=== PATIENT | male | born 1945 | race Caucasian/White ===

== ENCOUNTER 2017-04-07 07:40 | Day surgery (SDC) | payer MEDICARE, BC ==
[2017-04-06 14:11] VITALS: BMI 29.2
[~2017-04-07] VITALS: Ht 167.6 cm; Wt 83.5 kg
[2017-04-07] VITALS (19 sets, daily range): BP systolic 102–146; BP diastolic 66–94; PULSE 64–74; RESP 12–21; Ht 167.6 cm; Wt 83.5 kg
[~2017-04-07 07:40] MED LIST: CEFAZOLIN 2 GM/50 ML (PMX) 50 ML IVPB SCH; SOD CHLORIDE 0.9% 1,000 ML IV SCH
[2017-04-07] MEDS ORDERED: ASPI-664 PO (09:24)
[2017-04-07] MEDS ORDERED: LOSA50TA6 PO (09:25)
[2017-04-07] MEDS ORDERED: METF500T3 PO (09:26)
[2017-04-07] MEDS ORDERED: ICOS1CAP PO (09:26)
[2017-04-07] MEDS ORDERED: BUPIVACAINE 0.25% (MPF) 30 ML INJ ONE (09:45)
[2017-04-07] MEDS ORDERED: POLYMYXIN/BACITRACIN 1L IRRIG ONE ×2 (09:45→10:32)
[2017-04-07] MEDS ORDERED: ROCURONIUM 50 MG INJ ONE (09:50)
[2017-04-07] MEDS ORDERED: PROPOFOL 20 ML ONE (09:50)
[2017-04-07] MEDS ORDERED: ROPIVACAINE 0.2% 20 ML VIAL ONE (09:51)
[2017-04-07] MEDS ORDERED: CEFAZOLIN 1 GM INJ ONE (09:51)
[2017-04-07] MEDS ORDERED: FENTAnyl 50 MCG/ML VIAL ONE (09:51)
[2017-04-07] MEDS ORDERED: MIDAZOLAM 1 MG/ML 2 ML INJ ONE (09:51)
[2017-04-07] MEDS ORDERED: ONDANSETRON 4 MG INJ ONE (10:36)
[2017-04-07] MEDS ORDERED: METOCLOPRAMIDE 10 MG INJ ONE (10:36)
[2017-04-07] MEDS ORDERED: SUGAMMADEX SODIUM 200 MG/2 ML VIAL IV ONE (10:36)
[2017-04-07] MEDS ORDERED: PHENYLephrine (100 MCG/ML) 5ML SYG ONE (10:36)
[2017-04-07] MEDS ORDERED: DEXAMETHASONE 4 MG/ML 1 ML INJ ONE (10:36)
--- NOTE | 2017-04-07 10:49 | OPR ---
Date/Time of Note Date/Time of Note DATE: 04/07/17 TIME: 10:38 Operative Report Procedure Date: Apr 07, 2017 Preoperative Diagnosis incarcerated ventral hernia Postoperative Diagnosis same Operation Performed 1. lap incarcerated ventral hernia repair cpt code 59051 2. implantation of mesh cpt code 45406 3. therapeutic injection of subcutaneous marcaince cpt code 85174 Surgeon: Pina FELICIANO Water Pollution Control Inspector: MELLISSA BRYSON MD Anesthesia Type: general Estimated Blood Loss: minimal Specimen: none Grafts/Implants ventralight ST mesh 10 x 15 cm Complications: no Indications This is a 72-year-old old hernia he requires surgical repair. Risks alternatives benefits and percent were discussed with the patient. Patient expresses understanding consents to the operation Procedure Description She was taken to the OR and prepped and draped in usual sterile fashion. Surgical timeout is performed. IV antibiotics were given. Quadrant 5 mm transverse incision is made with a 15 blade. Using a 5 mm optical trocar optical perform pneumoperitoneum is established. Left flank 12 mm optical trocar and left lower quadrant 5 mm optical trochars are placed under direct visualization. Upon initial inspection there is incarcerated hernia contents which were reduced endoscopically. The hernia defect is identified and closed with interrupted #1 Prolenes using Endo Close and laparoscopic techniques. Underlay mesh with 10 [address] mesh is secured in place with secure strap. There is approximately 4 to of coverage. There is good hemostasis. Ports removed under visualization. Skin is closed using skin alonso. The subcu times Marcaine is injected throughout all incision sites. Dry dressings were applied to Pina FELICIANO Apr 07, 2017 10:49
[2017-04-07] MEDS ORDERED: HYDROCODONE/APAP (5/325) TAB PO ONE (11:00)
[2017-04-07] MEDS ORDERED: morphine 2 MG INJ ONE (11:23)
[2017-04-07] MEDS ORDERED: MEPERIDINE 25 MG INJ IV PRN (11:30)
[2017-04-07] MEDS ORDERED: LABETALOL HCL 20MG INJ IV PRN (11:30)
[2017-04-07] MEDS ORDERED: DIPHENHYDRAMINE 50 MG INJ IV PRN (11:30)
[2017-04-07] MEDS ORDERED: EPHEDrine SULFATE 50 MG/5 ML SYG IV PRN (11:30)
[2017-04-07] MEDS ORDERED: FENTAnyl 50 MCG/ML VIAL IV PRN ×3 (11:30)
[2017-04-07] MEDS ORDERED: hydrALAzine 20 MG INJ IV PRN (11:30)
[2017-04-07] MEDS ORDERED: ONDANSETRON 4 MG INJ IV PRN (11:30)
[2017-04-07] MEDS ORDERED: morphine (1 MG/ML) 10ML SYRINGE IV PRN ×3 (11:30)
== END 2017-04-07 13:10 | disposition home or self-care (01) ==
LOC: SDS 07:40
PROVIDERS: ATTEND Surgery
DX: K43.6 Other and unspecified ventral hernia with obstruction, without gangrene (principal); E11.9 Type 2 diabetes mellitus without complications; I10 Essential (primary) hypertension
CPT/HCPCS: 49653; 82962; C1781; J0690; J1100; J2250; J2270; J2405; J2765; J2795; J3010; J2370

== ENCOUNTER 2017-07-01 09:40 | Day surgery (SDC) | payer MEDICARE, BC ==
[~2017-07-01] VITALS: Ht 170.2 cm; Wt 85.4 kg
[~2017-07-01 09:40] MED LIST changes: +ASPI-664 PO; -CEFAZOLIN 2 GM/50 ML (PMX) 50 ML IVPB SCH; +ICOS1CAP PO; +LOSA50TA6 PO; +METF500T3 PO; -SOD CHLORIDE 0.9% 1,000 ML IV SCH
[2017-07-01] MEDS ORDERED: ATORVASTATIN (10:33)
[2017-07-01] MEDS ORDERED: BABY ASA (10:33)
[2017-07-01] MEDS ORDERED: LISINOPRIL (10:33)
[2017-07-01] MEDS ORDERED: NAPROXEN (10:33)
[2017-07-01 10:44] VITALS: BP 156/89; PULSE 76; RESP 27
[2017-07-01] MEDS ORDERED: MIDAZOLAM 1 MG/ML 2 ML INJ ONE (11:03)
[2017-07-01] MEDS ORDERED: LIDOCAINE 2% (SDV) 5 ML INJ ONE (11:03)
[2017-07-01] MEDS ORDERED: PROPOFOL 20 ML ONE (11:03)
[2017-07-01 11:31] VITALS: BP 110/68; PULSE 64; RESP 16
--- NOTE | 2017-07-01 11:33 | OPPN ---
Date/Time of Note Date/Time of Note DATE: 07/01/17 TIME: 11:33 Operative Report Preoperative Diagnosis Screening Postoperative Diagnosis Small rectal polyp was removed Internal hemorrhoids Operation/Procedure Performed Colonoscopy and biopsy Surgeon see signature line shop assistant None Anesthesia: MAC Estimated blood loss: none Transfusion Required none Specimen Rectal polyp Grafts/Implants none Complications none RTEMAYNE QUEZADA MD Jul 01, 2017 11:33
[2017-07-01 12:51] VITALS: BP 136/85; PULSE 66; RESP 20
--- NOTE | 2017-07-01 13:03 | GILP ---
DATE OF PROCEDURE: NAME OF PROCEDURES: Colonoscopy and biopsy. SURGEON: Tremayne Jaramillo MD PREOPERATIVE DIAGNOSIS: Screening colonoscopy. POSTOPERATIVE DIAGNOSES: 1. Colonoscopy all the way to the cecum. 2. Small rectal polyp was removed. 3. Internal hemorrhoids. INDICATION FOR THE PROCEDURE: Mr. Jhony Goyal is a 72-year-old male patient who was scheduled for screening colonoscopy. The procedure and possible complications are well explained to the patient. The patient understood and consented to the procedure. DESCRIPTION OF PROCEDURE: Under the influence of anesthesia, the colonoscope was carefully introduc ed in the rectum and under direct vision, it was advanced all the way to the cecum. FINDINGS: The patient had a small rectal polyp and it was removed using the biopsy forceps. He had internal hemorrhoids. He tolerated the procedure very well and there was no complication from the procedure. At the end o f the procedure, he was awake with stable vital signs and he was discharged home to the care of his family. IMPRESSION: Please see postoperative diagnoses. PLAN: Next screening colonoscopy in 10 years. Dictated By: TREMAYNE BHAT/SARAH Conf#: [id number] DID#: [id number]
== END 2017-07-01 13:46 | disposition home or self-care (01) ==
LOC: GIL 09:40
PROVIDERS: ATTEND Internal Medicine Gastroenterology
DX: Z12.11 Encounter for screening for malignant neoplasm of colon (principal); K62.1 Rectal polyp; K64.8 Other hemorrhoids; E11.9 Type 2 diabetes mellitus without complications; I10 Essential (primary) hypertension; E03.9 Hypothyroidism, unspecified
CPT/HCPCS: 45380; 82962; 88305; J2250